=== PATIENT | male | born 1995 | race African-American/Black ===

== ENCOUNTER 2022-02-20 20:11 | Emergency (ER) | payer OTHER ==
[~2022-02-20] VITALS: Ht 170.2 cm; Wt 81.2 kg
[2022-02-20 20:14] VITALS: BP 141/88
[2022-02-20] MEDS ORDERED: CLIN-141 PO (20:37)
[2022-02-20] MEDS ORDERED: IBUP-2071 PO (20:37)
[2022-02-20] MEDS ORDERED: ACETAMINOPHEN WITH CODEINE 1 TAB TAB PO ONE (21:00)
[2022-02-20] MEDS ORDERED: CLINDAMYCIN 150 MG CAP PO ONE (21:00)
== END 2022-02-20 20:55 | disposition home or self-care (01) ==
LOC: EDH 20:11
DX: K02.9 Dental caries, unspecified (principal); Z79.1 Long term (current) use of non-steroidal anti-inflammatories (NSAID)

== ENCOUNTER 2023-04-23 00:58 | Emergency (ER) | payer OTHER ==
[~2023-04-23] VITALS: Ht 167.6 cm; Wt 90.3 kg
[~2023-04-23 00:58] MED LIST: CLIN-141 PO; IBUP-2071 PO
[2023-04-23 01:12] VITALS: BP 147/86
[2023-04-23] MEDS ORDERED: KETOROLAC 60 MG VIAL (30MG/ML) IM ONE (02:00)
[2023-04-23] MEDS ORDERED: NAPR-1192 PO (02:00)
== END 2023-04-23 02:46 | disposition home or self-care (01) ==
LOC: EDH 00:58
DX: S63.591A Other specified sprain of right wrist, initial encounter (principal); Z79.899 Other long term (current) drug therapy; X58.XXXA Exposure to other specified factors, initial encounter; Y93.89 Activity, other specified; Y92.89 Other specified places as the place of occurrence of the external cause; Y99.8 Other external cause status
CPT/HCPCS: 99284; 73130; 73110; 29125; 96372; J1885